=== PATIENT | female | born 1970 | race Asian ===

== ENCOUNTER 2023-07-07 13:38 | Outpatient (CLI) | payer MEDICARE, OTHER ==
[~2023-07-07 13:38] MED LIST: DOCU-270 PO; LEVO100T PO
[2023-07-07] MEDS ORDERED: SILVER SULFADIAZINE CREAM 25 GM TUBE ONE (13:51)
== END 2023-07-07 23:59 | disposition home or self-care (01) ==
LOC: WOU 13:38
PROVIDERS: ATTEND Surgery
DX: T24.311A Burn of third degree of right thigh, initial encounter (principal); T31.0 Burns involving less than 10% of body surface; X12.XXXA Contact with other hot fluids, initial encounter; Y93.89 Activity, other specified; Y92.813 Airplane as the place of occurrence of the external cause; E11.42 Type 2 diabetes mellitus with diabetic polyneuropathy; I10 Essential (primary) hypertension